=== PATIENT | female | born 1940 | race Caucasian/White ===

== ENCOUNTER 2020-02-19 13:01 | Emergency (ER) | payer MEDICARE, SELFPAY ==
[2020-02-19 13:13] VITALS: BP 156/81; PULSE 101; RESP 16; TEMP 37.2; O2SAT 97
--- NOTE | 2020-02-19 13:26 | ED.EYEPROB ---
HPI - Eye Problem General Chief complaint: Eye Problems Stated complaint: Left eye injury Time Seen by Provider: 02/19/20 13:26 Source: patient and RN notes reviewed Mode of arrival: ambulatory Limitations: no limitations History of Present Illness HPI Narrative: This is a 79 years old female presented office for evaluation of possible corneal abrasion in her left eye. Symptoms reminiscent of previous corneal abrasion. She accidentally scratched her eyeball with her fingernail yesterday. She tried [id number] eye allergy with no relief. She is not diabetic. Td is up-to-date. Related Data Home Medications Medication Instructions Recorded Confirmed Synthroid 02/19/20 Vitamin D3 02/19/20 atorvastatin 10 mg PO DAILY 02/19/20 02/19/20 gabapentin 02/19/20 lorazepam 02/19/20 trazodone 02/19/20 Allergies Allergy/AdvReac Type Severity Reaction Status Date / Time No Known Allergies Allergy Verified 02/19/20 13:25 Review of Systems Review of Systems: Narrative: CONSTITUTIONAL: Denies fever or feeling ill EYES: Reports left eye irritation,burning, pain, blurry and light sensitivities. ENT: Denies congestion CARDIOVASCULAR: Denies chest pain. RESPIRATORY: Denies dyspnea GASTROINTESTINAL: Denies nausea, vomiting MUSCULOSKELETAL:Reports foot droop due to neuropathy NEUROLOGIC: Denies lightheaded PMFSH Past Medical History Medical History (Updated 02/19/20 @ 14:13 by DONTAE Medina) HLD (hyperlipidemia) HTN (hypertension) Hypothyroid Neuropathy Comments At time of signature, I agree with nursing past medical, surgical, social and family history. There is no relevant family history pertinent to the presenting complaint. Exam Narrative: Exam Narrative: GENERAL: This is a well-nourished, well-developed patient, in no apparent distress. EYES: PERRL. EMOI. Topical anesthetic was instilled with good anesthesia using 1gtt of opth anesthetic agent (tetracaine). Fluorescein stain of the L eye was performed with uptake of dye. No epithelial defect was noted. NO FB, ulcer or dendritic lesions. Upper lid was everted and no FB or lesions were noted. NO Laura sign. Normal saline irrigation eye solution was performed and the patient tolerated the procedure well, no adverse reaction or complications. CARDIOVASCULAR: Regular rate and rhythm without murmurs, gallops, or rubs. RESPIRATORY: Clear to auscultation. Breath sounds equal bilaterally. No wheezes, rales, or rhonchi. GASTROINTESTINAL: Abdomen soft, non-tender, nondistended. Bowel sounds are active. No guarding. [place] Coma Scale Eye Opening: Spontaneous 4 Alex[place] Coma Scale Motor: Obeys Commands 6 [place] Coma Scale Verbal: Oriented 5 Course Vital Signs Vital signs: Vital Signs Temperature 98.9 F 02/19/20 13:13 Pulse Rate 101 H 02/19/20 13:13 Respiratory Rate 16 02/19/20 13:13 Blood Pressure 156/81 H 02/19/20 13:13 Pulse Oximetry 97 02/19/20 13:13 Temperature 98.9 F 02/19/20 13:13 Pulse Rate 101 H 02/19/20 13:13 Respiratory Rate 16 02/19/20 13:13 Blood Pressure 156/81 H 02/19/20 13:13 Pulse Oximetry 97 02/19/20 13:13 MDM - Eye Problem MDM Narrative Medical decision making narrative: Elevated BP noted: I recommend the patient call the primary care provider to recheck her BP in 2week. Discharge instructions reviewed with patient, as well as provided in writing per nursing staff. The instructions also include specific and strict return/GO TO THE ER as well as f/u information. All questions have been answered, and the patient deny any further questions with discharge and discharge plan. Differential Diagnosis Differential diagnosis: Likely corneal abrasion, conjunctivitis, acute iritis and periorbital cellulitis Critical Care Time Critical Care Time Critical Care Time: No Discharge Plan Discharge Clinical Impression: Corneal abrasion Qualifiers: Encounter type: initial encounter Laterality
== END 2020-02-19 13:40 | disposition home or self-care (01) ==
PROVIDERS: Emergency Provider Nurse Practitioner
DX: S05.02XA Injury of conjunctiva and corneal abrasion without foreign body, left eye, initial encounter (principal); X58.XXXA Exposure to other specified factors, initial encounter; E78.5 Hyperlipidemia, unspecified; I10 Essential (primary) hypertension; E03.9 Hypothyroidism, unspecified; G62.9 Polyneuropathy, unspecified
CPT/HCPCS: 99213; A9270; G0463